=== PATIENT | male | born 1975 | race Caucasian/White ===

== ENCOUNTER 2024-09-26 06:17 | Day surgery (SDC) | payer BC, SELFPAY ==
[2024-09-26] VITALS (7 sets, daily range): BP systolic 121–149; BP diastolic 76–94; BMI 26.8
[2024-09-26] MEDS: CELEBREX 200 MG PO (13:09)
[2024-09-26] MEDS: TYLENOL 1000 MG PO (13:09)
[2024-09-26] MEDS: NORMOSOL-R/PLASMALYTE-A 1000 IV (13:10)
== END 2024-09-26 18:43 | disposition home or self-care (01) ==
LOC: SDS 06:17
PROVIDERS: ATTENDING PHYSICIAN Student in an Organized Health Care Education/Training Program; FAMILY PHYSICIAN Family Medicine
PROC: 0SSG04Z Reposition Left Ankle Joint with Internal Fixation Device, Open Approach (ICD-10-PCS; 2024-09-26)
PROC: 0QSK04Z Reposition Left Fibula with Internal Fixation Device, Open Approach (ICD-10-PCS; 2024-09-26)
PROC: 0QSH04Z Reposition Left Tibia with Internal Fixation Device, Open Approach (ICD-10-PCS; 2024-09-26)
DX: S82.852A Displaced trimalleolar fracture of left lower leg, initial encounter for closed fracture (principal); S93.432A Sprain of tibiofibular ligament of left ankle, initial encounter; W01.0XXA Fall on same level from slipping, tripping and stumbling without subsequent striking against object, initial encounter
CPT/HCPCS: 27822; 27829; 73610; 73700; 76000; 93005; C1713

== ENCOUNTER → 2025-02-26 10:30 | Outpatient (REF) | payer BC, SELFPAY | LOC: HWRAD 10:30 | PROVIDERS: ATTENDING PHYSICIAN Family Medicine; REFERRING PHYSICIAN Student in an Organized Health Care Education/Training Program | DX: Z87.81 Personal history of (healed) traumatic fracture (principal); E06.3 Autoimmune thyroiditis; E03.8 Other specified hypothyroidism | CPT/HCPCS: 77080 ==

== ENCOUNTER 2025-03-08 18:23 | Emergency (ER) | payer BC, SELFPAY ==
[2025-03-08 18:23] VITALS: BMI 25.3
[2025-03-08 18:33] VITALS: BP 124/84
--- NOTE | 2025-03-08 20:41 | ED.GENMED ---
History of Present Illness
General
Chief Complaint: DVT/Possible Blood Clot
Time Seen by Provider: 03/08/25 20:07
History of Present Illness
History of Present Illness:
49-year-old male presents to the emergency department for evaluation of a 'lump' to the anterior right lower leg first noticed today. He is currently undergoing PT and states that doing leg extension exercises on a 'old machine' may have caused
this. He is able to ambulate without pain. No leg swelling.
Past History
Past History
ED Past Medical History: Hypothyroidism
ED Past Surgical History: None
Review of Systems
Review of Systems
Allergies reviewed?: Yes
All Other Systems: ROS reviewed and negative except as documented in HPI and ROS
Phy Exam
Physical Exam
Physical Exam:
GEN: Well appearing, NAD, WDWN
HEENT: Oral mucosa moist, no scleral icterus
Cardiac: Regular rate
Lung: No respiratory distress, no tachypnea
MSK: No gross deformity or injuries. No palpable masses or abnormalities to the right lower leg, no obvious linear streaking or erythema
Skin: Good color, no pallor or jaundice, no rashes
Neuro: AO x3, moves all extremities freely
Psych: Calm, cooperative
Course
Vital Signs
Initial and Last Documented VS:
Initial Vital Signs
Temp Pulse Resp BP Pulse Ox
98.2 F 72 20 124/84 97
03/08/25 18:33 03/08/25 18:33 03/08/25 18:33 03/08/25 18:33 03/08/25 18:33
Last Documented Vital Signs
Temp Pulse Resp BP Pulse Ox
98.2 F 72 20 124/84 99
03/08/25 18:33 03/08/25 18:33 03/08/25 18:33 03/08/25 18:33 03/08/25 20:44
MDM/Problems Addressed
MDM/Problems Addressed:
Essentially benign exam, I do not see any evidence of a lump or a mass to the right lower extremity, no indication for ultrasound
*Pulse Oximetry
SaO2: 99
Oxygen Mode of Delivery: Room air
Patient hypoxic: no
*Critical Care Note
Total Time (30-74mins, 75-104mins- exclusive of procedures): Not Applicable
ED Attending Note
-
Portions of this chart may have been created with voice recognition software.� Occasional wrong word or��sound alike� substitutions may have occurred due to the inherent limitations of voice recognition software.
Discharge Plan
Departure
Patient Disposition: Home (Routine Discharge)
Date of Disposition: 03/08/25
Time of Disposition: 20:42
Patient with high blood pressure during this ER visit?: No
Discharge Problem:
Leg pain, right
Prescriptions:
No Action
levothyroxine 100 MCG tablet
100 mcg PO DAILY
rosuvastatin 20 mg Tablet
20 mg PO DAILY
Medical Marijuana
1 unit PO DAILY
Referrals:
Adrian Kirby DO [Family Provider, Family Practice]
Activity Restrictions/Additional Instructions:
Use ice and anti-inflammatories as needed for pain control
There is no evidence of DVT on examination
Interventions
Interventions:
*Risk Screen - Suicide Last Done: 03/08/25 18:33
*General Assessment Last Done: 03/08/25 20:00
*Neglect/Abuse Screening Last Done: 03/08/25 18:33
*ED- Fall Risk Assessment Last Done: 03/08/25 20:00
*Nursing Disposition Last Done: 03/08/25 20:49
ED- Cardiac Assessment Last Done: 03/08/25 20:02
ED- Pulmonary Assessment Last Done: 03/08/25 20:02
ED-Peripheral Vascular Assessment Last Done: 03/08/25 20:02
ED-Skin Assessment Last Done: 03/08/25 20:00
Discharge Date and Time
Discharge Date/Time: 03/08/25 20:49
Print Language: DIVEHI
== END 2025-03-08 20:49 | disposition home or self-care (01) ==
LOC: EMR 18:23
PROVIDERS: EMERGENCY PHYSICIAN Emergency Medicine; FAMILY PHYSICIAN Family Medicine
DX: M79.604 Pain in right leg (principal); E03.9 Hypothyroidism, unspecified
CPT/HCPCS: 99282